=== PATIENT | female | born 1990 | race Caucasian/White ===

== ENCOUNTER 2019-03-09 20:38 | Emergency (ER) | payer OTHER ==
[~2019-03-09] VITALS: Ht 170.2 cm; Wt 112.9 kg
[~2019-03-09 20:38] MED LIST: ALBUTEROL0.09 MG/Ac INH
[2019-03-09 20:45] VITALS: Ht 170.2 cm; Wt 112.9 kg
[2019-03-09 23:41] VITALS: BP 146/93
== END 2019-03-09 23:41 | disposition home or self-care (01) ==
LOC: ED 20:38
DX: J45.909 Unspecified asthma, uncomplicated (principal); F41.9 Anxiety disorder, unspecified